=== PATIENT | female | born 1980 | race Caucasian/White ===

== ENCOUNTER → 2020-06-21 | Day surgery (SDC) | payer MEDICAID ==
[~2020-06-21] MED LIST: Acetaminophen 500 MG Tab PO ONE; Bupivacaine 0.5%/EPINEPHrine 1:200,000 50 ML MDV ONE; Dexamethasone 4 MG/ML SDV ONE; Dextrose 5%-Lactated Ringers 1,000 ML IV SCH; Docusate Sodium 100 MG Cap PO ONE; Gabapentin 300 MG Cap PO ONE; Glycopyrrolate 0.2 MG/ML 5 ML MDV ONE; Meropenem 500 MG in Sodium Chloride 0.9% 50 ML IV ONE; Neostigmine Methylsulfate 1 MG/ML 5 ML Syringe ONE; Ondansetron 4 MG/2 ML SDV ONE; Propofol 200 MG/20 ML SDV ONE; Rocuronium 50 MG/5 ML Vial ONE; Succinylcholine 200 MG/10 ML MDV ONE; fentaNYL 250 MCG/5 ML SDV ONE
--- NOTE | 2020-06-29 12:52 | OR ---
DATE OF PROCEDURE: 06/21/2020 SURGEON: Will Gant MD PREOPERATIVE DIAGNOSIS: Chronic anal fissure. POSTOPERATIVE DIAGNOSIS: Chronic anal fissure. OPERATIVE PROCEDURE: Anal fissurectomy with left lateral internal sphincterotomy (22529). ANESTHESIA: General. INDICATIONS FOR PROCEDURE: A 40-year-old female presenting with a several week history of anal fissure that has been unresponsive to conservative treatment. After discussion, she wished to proceed with an anal fissurectomy and bilateral internal sphincterotomy. Potential risks of the procedure including bleeding, infection, nonhealing of the area or recurrence of the fissure, problems with anal sphincter control postoperatively were all reviewed, and the patient wishes to proceed. DETAILS OF PROCEDURE: The patient was taken to the operating room and placed in a supine position. After general endotracheal anesthesia was induced, she was converted to a lithotomy position and a perianal prep performed. Initial examination confirmed a posterior- based anal fissure. This was initially excised and sent for histologic evaluation. The fissurectomy site was then closed with a running 4- 0 Vicryl stitch and then the base of that incision anesthetized with 0.5% Marcaine with epinephrine. The speculum was then turned to the left lateral aspect of the anal canal. The internal sphincter was palpated and a small mucosal incision made overlying this. Using mosquito forceps, the lower two-thirds of the sphincter was then divided using electrocautery. This was then closed also with 4-0 Vicryl stitch and similarly anesthetized with 0.5% Marcaine and the procedure then concluded. There were no evident complications. The patient was taken to the recovery room in satisfactory condition. Will Gant MD /[id number]
== END ==
LOC: JP.SDS 07:24
PROVIDERS: ATTEND Surgery
DX: K60.1 Chronic anal fissure (principal); F17.200 Nicotine dependence, unspecified, uncomplicated
CPT/HCPCS: 36415; 46200; 80053; 81025; 85025; 88304; A9270; J0330; J1100; J2185; J2405; J2704; J2710; J3010; J3490; J7050; J7121

== ENCOUNTER 2020-09-20 23:52 | Emergency (ER) | payer MEDICAID ==
[2020-09-21] MEDS ORDERED: carBAMazepine 200 MG Tab PO ONE (00:14)
--- NOTE | 2020-09-21 00:21 | EDM.PDOC ---
ED HPI GENERAL MEDICAL PROBLEM - General Chief Complaint: General Stated Complaint: LEFT JAW PAIN Time Seen by Provider: 09/21/20 00:05 Source of Information: Reports: Patient, Old Records, RN History Limitations: Reports: No Limitations - History of Present Illness INITIAL COMMENTS - FREE TEXT/NARRATIVE: 40 yo female presents with L facial pain. Sx's now remind her of trigeminal neuralgia she had in the past. Called her dentist earlier today and was started on cephalexin for presumed dental infection, but the dentist did not examine her. No facial swelling or redness. Tried ibuprofen without relief. Had Tegretol in the past that helped. No fever. Onset: Gradual Onset Date: 09/19/20 Duration: Day(s):, Getting Worse Location: Reports: Face (left) Quality: Reports: Stabbing Severity: Severe Improves with: Reports: None Worsens with: Reports: Other (unknown) Context: Reports: Other Associated Symptoms: Reports: No Other Symptoms (see HPI) Treatments BUS ATTENDANT: Reports: Other (see below) (cephalexin) Left Face/Facial Pain Score (Numeric/FACES): 3 - Related Data Allergies Allergy/AdvReac Type Severity Reaction Status Date / Time No Known Allergies Allergy Verified 09/20/20 23:58 Home Meds: Home Meds cephALEXin [Cephalexin] 1 tab PO TID 09/20/20 [History] carBAMazepine [Tegretol] 200 mg PO TID #30 tab 09/21/20 [Rx] Past Medical History HEENT History: Reports: Allergic Rhinitis, Impaired Vision [employer] History: Reports: Musculoskeletal History: Reports: Fracture Neurological History: Reports: Other (See Below) Other Neuro History: trigeminal neurolgia. degenerative disc disease in neck - Infectious Disease History Infectious Disease History: Reports: Chicken Pox - Past Surgical History HEENT Surgical History: Reports: Other (See Below) Other HEENT Surgeries/Procedures: volcocords surgery GI Surgical History: Reports: Other (See Below) Other GI Surgeries/Procedures: rectal fissure Social & Family History - Tobacco Use Tobacco Use Status *Q: Current Every Day Tobacco User Years of Tobacco use: 22 Packs/Tins Daily: 1 - Caffeine Use Caffeine Use: Reports: Coffee - Recreational Drug Use Recreational Drug Use: No ED ROS GENERAL - Review of Systems Review Of Systems: See Below Constitutional: Reports: No Symptoms HEENT: Reports: Other (shooting pain L jaw area) Skin: Reports: No Symptoms Neurological: Reports: Other (shooting pain L mandible area) ED EXAM, GENERAL - Physical Exam Exam: See Below Exam Limited By: No Limitations General Appearance: Alert, WD/WN, No Apparent Distress Eye Exam: Bilateral Eye: Normal Inspection Ears: Normal External Exam, Normal Canal, Hearing Grossly Normal Ear Exam: Bilateral Ear: Auricle Normal, Canal Normal Nose: Normal Inspection, No Blood Throat/Mouth: Normal Inspection, Normal Lips, Normal Teeth, Normal Oropharynx, Normal Voice, Other (no obvious caries or dental tenderness with percussion. ) Head: Atraumatic, Normocephalic Neck: No: Lymphadenopathy (R), Lymphadenopathy (L) Neurological: Alert, Oriented, CN II-XII Intact, Normal Cognition, No Mo tor/Sensory Deficits Psychiatric: Normal Affect, Normal Mood Skin Exam: Warm, Dry, Intact, Normal Color, No Rash Course - Vital Signs Last Recorded V/S: Last Vital Signs Temp 35.1 C L 09/21/20 00:03 Pulse 70 09/21/20 00:03 Resp 18 09/21/20 00:03 BP 110/67 09/21/20 00:03 Pulse Ox 97 09/21/20 00:03 - Orders/Labs/Meds Meds: Medications Discontinued Medications Generic Name Dose Route Start Last Admin Trade Name Douglas PRN Reason Stop Dose Admin Carbamazepine 200 mg 09/21/20 00:14 Tegretol Tab PO 09/21/20 00:15 ONETIME ONE Departure - Departure Time of Disposition: 00:30 Disposition: Home, Self-Care 01 Condition: Good Clinical Impression: Left-sided trigeminal neuralgia - Discharge Information *PRESCRIPTION DRUG MONITORING PROGRAM REVIEWED*: Not Applicable *COPY OF PRESCRIPTION DRUG MONITORING REPORT IN PATIENT YAN: Not Applicable Prescriptions: carBAMazepine [Tegretol] 200 mg PO TID #30 tab Referrals: Gi Nuno PA [Primary Care Provider] - Additional Instructions: Take carbamazepine 200 mg every 8 hrs. May add acetaminophen and/or ibuprofen as needed for added relief. Recheck in the clinic later this week to see if you need your dosage adjusted and/or prescriptions refilled/extended. Sepsis Event Note (ED) - Evaluation Sepsis Screening Result: No Definite Risk - Focused Exam Vital Signs: Vital Signs Temp Pulse Resp BP Pulse Ox 09/21/20 00:03 35.1 C L 70 18 110/67 97 09/21/20 00:02 35.1 C L 70 18 110/67 97
== END 2020-09-21 00:30 | disposition home or self-care (01) ==
LOC: JP.ED 23:52
DX: G50.0 Trigeminal neuralgia (principal); Z72.0 Tobacco use
CPT/HCPCS: 99283; A9270